=== PATIENT | female | born 1970 | race Caucasian/White ===

== ENCOUNTER → 2017-02-15 | Day surgery (SDC) | payer OTHER ==
[~2017-02-15] MED LIST: ALBUTEROL17 GM INH; AZITHROMYCIN250 MG PO; CHEWABLE ASPIRI81 MG PO; CIPRODEX OTIC7.5 ML OT; DOXYCYCLINE150 MG PO; FLEXERIL10 MG PO; FLOMAX0.4 M1 PO; HYCODAN60 ML 5MG/ PO; HYDROCODON-ACE1 EAC7 PO; KEFLEX500 MG PO; LEVAQUIN PO; LISINOPRIL20 MG PO; LORTAB 5/500 TA1 TA1 PO; OMEPRAZOLE40 M1 PO; PRILOSEC40 MG PO; SKELAXIN PO; SYMBICORT INH; TRAMADOL HCL50 M1 PO; TYL325 PO; ULTRAM PO; VICODIN 5/500 T1 TAB PO; ZESTRIL10 MG PO; ZESTRIL2.5 MG PO
--- NOTE | ~2017-02-15 | OR ---
Unit #: [id number] #: [id number] Patient: REAGAN SCHWARZ [id number] [address] [address] [id number] O MR#: [id number] NAME: REAGAN SCHWARZ. ROOM: Date of Procedure: 02/15/2017 Admission Date: 02/15/2017 Surgeon: David Diaz M.D. : 1970 Attending Physician: David Diaz M.D. Primary Care Physician: Desirae Younger M.D. OPERATIVE REPORT SERVICES PROVIDED 1. Therapeutic lumbar epidural steroid injection. 2. Fluoroscopy of the lumbosacral spine. PREOPERATIVE DIAGNOSES 1. Degenerative disk disease at L2-L3, L4-L5, and L5-S1. 2. Xbi-mvmtigo-vuatxgejn diabetes mellitus, gastroesophageal reflux disease, depression, anxiety disorder, asthma, peripheral edema, probable obstructive sleep apnea. POSTOPERATIVE DIAGNOSES 1. Degenerative disk disease at L2-L3, L4-L5, and L5-S1. 2. Gwx-nqwjgyg-bsmlmgltq diabetes mellitus, gastroesophageal reflux disease, depression, anxiety disorder, asthma, peripheral edema, probable obstructive sleep apnea. PROCEDURE PERFORMED Lumbar epidural steroid injection using fluoroscopy. FOLLOW-UP/REVIEW OF SYSTEMS/PHYSICAL EXAM Ms. Schwarz has persistent lumbar radiculopathy. She has responded in the short-term to a lumbar epidural steroid injection with a few weeks of greater than 60% pain relief. She has had a recurrence of right greater than the left lower extremity radiculopathy in the L5-S1 distributions predominantly. She reports minimal relief with tramadol and would like something stronger. She may have obstructive sleep apnea and was advised to follow with her PCP in this regard. She has no medical contraindications to the procedure, that was performed as follows with her consent. INDICATIONS/COMMENTS AND CONSENTS/STATEMENT OF MEDICAL NECESSITY The patient's current medications, allergies and vital signs are documented in the nursing assessment. The risks and benefits of the intervention(s) were discussed with the patient in detail including but not limited to infection, bleeding, meningitis, steroid induced side-effects, nerve damage, paralysis, spinal headaches, neuritis, persistent or worsening pain. The patient wishes to proceed. A separate pain assessment is also in the chart. I have reviewed all of this and have reviewed this with the patient. A current History and Physical is also attached. DESCRIPTION OF PROCEDURE(S) Unit #: [id number] #: [id number] Patient: REAGAN SCHWARZ 1. Monitoring and positioning: After appropriate discussions it was decided to perform the procedure under local anesthesia without supplemental intravenous sedation. Vital signs were monitored in pre, intra and post-procedure phase. Monitoring included EKG, non-invasive BP, pulse oximetry, and temperature. These are documented and were stable. Appropriate supports and restraints were used. 2. Sedation: None. 3. Lumbar epidural injection/fluoroscopy: The patient was placed in the sitting position. Positional supports were used. Fluoroscopy of the lumbar spine was performed. Sterile prep and drape with carried out with ChloraPrep. Local anesthesia was with infiltrated with 2 mL of preservative-free 1% Lidocaine. Once anesthesia was established, a 20-gauge 4-1/2 inch Tuohy epidural needle was inserted at the L5-S1 level epidurally, using a right interlaminar approach, loss of resistance to saline technique, and with fluoroscopic guidance. Needle placement tested negative for subarachnoid and intravascular placement. An intra-operative epidurogram was now performed. Intra-operative epidurogram: 1 mL(s) of Isovue-M300 was injected through the epidural needle under continuous fluoroscopy. The dye was seen to spread to L5 in the cephalad direction, and to S1 in the caudal direction. The spread of the dye was uniform. 1 mL of preservative-free normal saline was used to irrigate the dye off the epidural space. There was no intravascular or intrathecal spread of contrast. A lumbar epidural steroid injection was now performed using a total of 3 mL of a solution containing 0.2% bupivacaine and 80 mg of Depo-Medrol. Fluoroscopic imaging confirmed spread of medication. The needle was then removed intact. The skin was washed off. Prep solution and dressings were applied at the injection site. The patient tolerated the procedure well. The patient was then observed in the recovery area for 30 minutes. RESULTS The patient had a consistent block with the dose of local anesthetic used. Pain relief was satisfactory. There were no complications or side effects. DISCHARGE CONDITION 1. The patient was discharged in satisfactory condition accompanied by a family member. 2. Post-procedure instructions were given. PLAN(S) The patient will return to the clinic in 1 months' time for re-assessment and office visit. I thank the patient's referring physician for the opportunity to participate in the care of this patient. Please do not hesitate to call for any questions regarding this patient's pain management. Dictated by.Dianna Cates/aman TD: 02/15/2017 23:11 JOB #: [id number] Unit #: [id number] #: [id number] Patient: REAGAN SCHWARZ OPERATIVE REPORT Page 1 of 1 X David Diaz MD PROCEDURE OPERATIVE NOTE
== END | disposition home or self-care (01) ==
LOC: CCSC 07:32
DX: M51.16 Intervertebral disc disorders with radiculopathy, lumbar region (principal); M51.17 Intervertebral disc disorders with radiculopathy, lumbosacral region; E11.9 Type 2 diabetes mellitus without complications; K21.9 Gastro-esophageal reflux disease without esophagitis; F41.8 Other specified anxiety disorders; R60.0 Localized edema; F17.200 Nicotine dependence, unspecified, uncomplicated
CPT/HCPCS: 82947; J1040; J2250; J3010

== ENCOUNTER 2017-06-23 19:24 | Emergency (ER) | payer OTHER ==
[~2017-06-23] VITALS: Ht 165.1 cm; Wt 136.1 kg
--- NOTE | ~2017-06-23 | CT2 ---
[facility] A Service of [facility] RADIOLOGY TEXT RESULTS PATIENT: REAGAN BARON LOCATION: [facility] : [birth year] UNIT #: [id number] AGE: [address]: Whitley Ch MD SEX: F ORDER DR: [id number] [facility] [address] [place], [place] [address] [id number] E MR#: [id number] Acc #: [id number] NAME: REAGAN BARON : 1970 SEX: F STUDY DATE/TIME: 06/24/2017 00:52 UNIT: [facility] ROOM: STUDY DESCRIPTION: CT Abd and Pelv W Cont Attending Physician: Whitley Ch M.D. Ordering Physician: Whitley Ch M.D. Primary Care Physician: Cesar Rice [facility] IMAGING REPORT This report is preliminary unless electronic signature is present EXAM CT abdomen and pelvis 06/24 at 00:52 INDICATION Rectal bleeding for 1 month. Lower abdominal pain for 1 month. TECHNIQUE Axial images were obtained through the abdomen and pelvis following oral and IV contrast administration. Multiplanar reformats were obtained. Comparison made with 11/14/2016. This CT examination was performed with one or more of the following radiation dose reduction techniques: automatic exposure control, adjustment of mA and/or kV according to patient size, and iterative reconstruction. FINDINGS ABDOMEN: Lung bases are clear. There is fatty infiltration of the liver. Solid organs are otherwise normal. Gallbladder unremarkable. GI tract is normal. No free fluid or adenopathy is seen. PELVIS: There has been interval repair of an umbilical hernia. The appendix is normal. The remainder of the GI tract is normal as well. Solid pelvic organs unremarkable. No free fluid. There is some sclerosis of the right side of the symphysis pubis which is unchanged. 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 There is levoscoliosis in the lumbar spine. IMPRESSION 1. No acute findings in the abdomen or pelvis. 2. Fatty liver. 3. Normal GI tract, including the appendix. 4. Interval umbilical hernia repair. Dictated by... [facility] A Service of [facility] RADIOLOGY TEXT RESULTS PATIENT: REAGAN BARON LOCATION: [facility] : [birth year] UNIT #: [id number] AGE: [address]: Whitley Ch MD SEX: F ORDER DR: Rocky Rodriges Jr., M.D. THIS IS AN ELECTRONICALLY VERIFIED REPORT Rocky Rodriges Jr., M.D. at 06/27/2017 5:50 AM CLEOPATRA/dory TD: 06/24/2017 10:41 JOB #: [id number] MEDICAL IMAGING REPORT Page 1 of 1 COPY
[~2017-06-23 19:24] MED LIST changes: -FLOMAX0.4 M1 PO; -HYDROCODON-ACE1 EAC7 PO
[2017-06-23 20:09] LABS: BASOPHIL% 0.3 % (0-2.5); EOSINOPHIL# 0.3 X10e3 (0-0.7); EOSINOPHIL% 2.9 % (0.0-7.0); HEMATOCRIT 44.6 % (35.0-45.0); HEMOGLOBIN 14.6 gm/dL (12.0-16.0); LYMPHOCYTE# 3.7 X10e3 (1.0-3.5); LYMPHOCYTE% 32.1 % (17.0-45.0); MEAN CELL VOLUME 94.6 FL (83-96); MEAN CORPUSCULAR HEMOGLOBIN 31.1 PG (28-34); MEAN CORPUSCULAR HGB CONC 32.8 g/dL (30-36); MEAN PLATELET VOLUME 9.3 FL (6.5-11.5); MONOCYTE% 8.4 % (3.0-12.0); NEUTROPHIL# 6.5 X10e3 (1.5-7.1); NEUTROPHIL% 56.3 % (40-75); PLATELET COUNT 243 X10e3 (140-420); RED BLOOD COUNT 4.71 X10e (3.90-5.30); RED CELL DISTRIBUTION WIDTH 14.6 % (11.0-15.5); WHITE BLOOD COUNT 11.6 X10e3 (4.0-10.5)
[2017-06-23 20:14] LABS: DIFF IND NO
[2017-06-23 20:33] LABS: ALBUMIN SERUM 3.8 g/dL (3.5-5.0); ALKALINE PHOSPHATASE 68 U/L (32-92); ALT (SGPT) 12 U/L (10-40); AMYLASE 11 U/L (0-46); AST (SGOT) 18 U/L (10-42); BILIRUBIN, DIRECT 0.1 mg/dL (0.0-0.2); BILIRUBIN,INDIRECT 0.3 mg/dL (0.0-0.9); BILIRUBIN,TOTAL 0.4 mg/dL (0.2-2.0); BLOOD UREA NITROGEN <5 mg/dL (9-23); BUN/CREATININE RATIO 7.14; CALCIUM SERUM 8.8 mg/dL (8.4-10.2); CARBON DIOXIDE 27 mmol/L (22-31); CHLORIDE 100 mmol/L (100-111); CREATININE SERUM 0.7 mg/dL (0.6-1.4); GLOM FILT RATE Estimated 103.2 mL/min (>60); GLUCOSE FASTING 97 mg/dL (70-110); LIPASE 18 U/L (22-51); POTASSIUM 3.3 mmol/L (3.5-5.1); SODIUM 136 mmol/L (135-145)
[2017-06-23 23:17] LABS: URINE SOURCE CLEAN CATCH
[2017-06-23 23:24] LABS: URINE APPEARANCE CLEAR; URINE BILIRUBIN NEG (NEG); URINE BLOOD 2+ (NEG); URINE COLOR YELLOW; URINE GLUCOSE NEG (NEG); URINE KETONE NEG (NEG); URINE LEUKOCYTE ESTERASE NEG (NEG); URINE NITRATE NEG (NEG); URINE PROTEIN NEG (NEG); URINE SPECIFIC GRAVITY 1.021 (1.003-1.035); URINE UROBILINOGEN 0.2 MG/DL (NEG)
[2017-06-23 23:25] LABS: CULTURE INDICATED? YES; URINE BACTERIA AUWI 2+ (NEGATIVE); URINE SQUAMOUS EPITHELIAL CELL OCC /[HPF]; UWBCS1 AUWI 0-2 (0-5)
[2017-07-04] MEDS ORDERED: OMEPRAZOLE40 M1 PO (16:14)
[2017-07-04] MEDS ORDERED: HYDROCODON-ACE1 EAC7 PO (16:15)
[2017-07-04] MEDS ORDERED: FLOMAX0.4 M1 PO (16:15)
== END 2017-06-24 02:39 | disposition home or self-care (01) ==
LOC: CED 19:24
DX: R10.9 Unspecified abdominal pain (principal); Z88.0 Allergy status to penicillin; Z88.6 Allergy status to analgesic agent
CPT/HCPCS: 36415; 74177; 80048; 80076; 81003; 82150; 83690; 85025; 87086; 96374; 99284; J2270; Q9967

== ENCOUNTER → 2017-07-06 | Outpatient (CLI) | payer OTHER ==
[~2017-07-06] MED LIST changes: +FLOMAX0.4 M1 PO; +HYDROCODON-ACE1 EAC7 PO
--- NOTE | ~2017-07-06 | US6 ---
[facility] A Service of [facility] RADIOLOGY TEXT RESULTS PATIENT: REAGAN BARON LOCATION: [facility] : [birth year] UNIT #: [id number] AGE: [address]: Dagoberto Bower MD SEX: F ORDER DR: [id number] [facility] [address] [place], [place] [address] [id number] O MR#: [id number] Acc #: [id number] NAME: REAGAN BARON. : 1970 SEX: F STUDY DATE/TIME: 07/06/2017 9:07 UNIT: [facility] ROOM: STUDY DESCRIPTION: US Abdominal Limited Attending Physician: Dagoberto Bower Jr., M.D. Referring Physician: Dagoberto Bower Jr., M.D. Ordering Physician: Dagoberto Bower Jr., M.D. Primary Care Physician: Cesar Rice MEDICAL IMAGING REPORT This report is preliminary unless electronic signature is present EXAM Right upper quadrant abdominal ultrasound INDICATIONS Right upper quadrant abdominal pain for the past 2 months. PROCEDURE Mckeon-scale and Doppler imaging right upper quadrant of the abdomen. COMPARISON CT from 06/24/2017 FINDINGS Study is technically difficult, secondary to body habitus. Pancreas is obscured and not well seen. Liver is difficult to evaluate on this study. Common duct measures approximately 4 mm. The gallbladder is not well seen. Liver enlarged measuring 20.1 cm. Right kidney measures approximately 13 cm. No hydronephrosis. IMPRESSION 1. Technically difficult study secondary to body habitus. Many right upper quadrant structures are not well characterized. 2. Hepatomegaly. Dictated by... Dat Koch M.D. THIS IS AN ELECTRONICALLY VERIFIED REPORT Dat Koch M.D. at 07/08/2017 9:52 PM BLUE/miguel TD: 07/06/2017 11:31 [facility] A Service of [facility] RADIOLOGY TEXT RESULTS PATIENT: REAGAN BARON LOCATION: [facility] #: [id number] : [birth year] UNIT #: [id number] AGE: [address]: Dagoberto Bower MD SEX: F ORDER DR: YARON #: [id number] MEDICAL IMAGING REPORT Page 1 of 1 COPY
--- NOTE | ~2017-07-06 | NM22 ---
[facility] A Service of [facility] RADIOLOGY TEXT RESULTS PATIENT: REAGAN BARON LOCATION: [facility] : [birth year] UNIT #: [id number] AGE: [address]: Dagoberto Bower MD SEX: F ORDER DR: [id number] [facility] [address] [place], [place] [address] [id number] O MR#: [id number] Acc #: [id number] NAME: REAGAN BARON : 1970 SEX: F STUDY DATE/TIME: 07/06/2017 10:02 UNIT: [facility] ROOM: STUDY DESCRIPTION: PRUDENCIO Hepatobiliary W GB Pharm Attending Physician: Dagoberto Bower Jr., M.D. Referring Physician: Dagoberto Bower Jr., M.D. Ordering Physician: Dagoberto Bower Jr., M.D. Primary Care Physician: Cesar Rice MEDICAL IMAGING REPORT This report is preliminary unless electronic signature is present EXAM HIDA scan with Kinevac CCK 07/06/2017 HISTORY Right upper quadrant abdominal pain with nausea and vomiting. Alternating diarrhea and constipation, abdominal bloating early satiety. Symptoms since November 2016 worsening over the past month. FINDINGS The patient received intravenous injection of 5.64 mCi of technetium 99m tagged Choletec for hepatobiliary imaging. 1 hour following injection of the radiopharmaceutical the patient received an intravenous injection of 2.8 mcg of Kinevac. There is homogeneous distribution of radiotracer throughout the liver. Gallbladder activity was seen by 30 minutes postinjection of the radiopharmaceutical. Following Kinevac injection the gallbladder ejection fraction was 63.1% (normal is greater than 30%). IMPRESSION Normal HIDA scan with gallbladder ejection fraction of 63.1%. Dictated by... Camden Ordoñez M.D. THIS IS AN ELECTRONICALLY VERIFIED REPORT Camden Ordoñez M.D. at 07/07/2017 7:48 AM GAMALIEL/lulu TD: 07/06/2017 12:48 JOB #: [id number] MEDICAL IMAGING REPORT [facility] A Service of [facility] & [facility] RADIOLOGY TEXT RESULTS PATIENT: REAGAN BARON [facility] #: [id number] : [birth year] UNIT #: [id number] AGE: [address]: Dagoberto Bower MD SEX: F ORDER DR: Page 1 of 1 COPY
== END | disposition home or self-care (01) ==
LOC: CGUS 08:47
DX: R10.11 Right upper quadrant pain (principal); R11.10 Vomiting, unspecified; R16.0 Hepatomegaly, not elsewhere classified
CPT/HCPCS: 76705; 78227; A9537; J2805

== ENCOUNTER → 2017-07-12 | Day surgery (SDC) | payer OTHER ==
--- NOTE | ~2017-07-12 | OR ---
Unit #: [id number] #: [id number] Patient: REAGAN BARON [id number] [address] [place], [place] [address] [id number] O MR#: [id number] NAME: REAGAN BARON. ROOM: Date of Procedure: 07/12/2017 Admission Date: 07/12/2017 Surgeon: Dagoberto Bower Jr., M.D. : 1970 Attending Physician: Dagoberto Bower Jr., M.D. Primary Care Physician: Cesar Rice OPERATIVE REPORT INDICATIONS FOR PROCEDURE The patient is a 47-year-old white female, who has been having some recent rectal bleeding. She has also had abdominal pain with nausea and mid epigastric abdominal pain. She has had no previous colonoscopy. It was felt that she needed upper and lower endoscopy. She is brought in this time at her request after prep at home for these procedures. She understands the procedure including the risks, including that of perforation and bleeding, and consents. PREOPERATIVE DIAGNOSES Possible occult ulcer disease, possible esophagitis, rectal bleeding etiology? POSTOPERATIVE DIAGNOSES Possible occult ulcer disease, possible esophagitis, rectal bleeding etiology? On upper endoscopy, the patient was noted to have 2+ ulcerative distal esophagitis, small hiatal hernia, mild gastritis with several small antral benign-appearing polyps, and some chronic duodenitis without bleeding or ulcer disease and on colonoscopy to the cecum, the patient was noted to have a small lipoma of the ascending colon with some internal and external hemorrhoids. The external hemorrhoids did appear slightly irritated, but not actively bleeding. ANESTHESIA MAC anesthesia. PROCEDURE PERFORMED Flexible fiberoptic esophagogastroduodenoscopy with antral biopsy for Helicobacter pylori and biopsies of small polyps for pathology and colonoscopy to the cecum. DESCRIPTION OF PROCEDURE The patient was positioned in Wilson position with left side down. After being given MAC anesthesia, the Olympus XQ scope was passed through the proximal esophagus. The entire esophagus was examined. Proximal two-thirds appeared normal. In the area of the distal esophagus, there was 2+ ulcerative distal esophagitis without stenosis. The scope was advanced through the GE junction and the cardia, and down to the fundic and antral region of the stomach, retroflexed back up to the area of the cardia, there was a small hiatal hernia present. The stomach distended well without evidence of rigidity. There was no evidence of any gastric ulcer disease, but there were several small antral polyps, which appeared Unit #: [id number] #: [id number] Patient: REAGAN BARON to be benign and these were not pedunculated. Several of these were biopsied for pathology without bleeding. The scope was advanced through the pylorus and duodenal bulb and down to the second portion of the duodenum. The entire duodenal portion examination was within normal limits except for noting some chronic granular appearing mucosa in the bulb compatible with chronic mild duodenitis. The scope was then slowly removed. The patient repositioned for colonoscopy. Digital rectal examination was performed, which revealed no palpable mass or tenderness. No blood or stool in the rectal ampulla. There were external hemorrhoids present. The Olympus colonoscope was advanced through the anal canal up the rectum and retroflexed down to the area of the anorectal region. There was no evidence of any fissures. There were several internal hemorrhoids, which were not actively bleeding. The scope was then straightened and advanced up in the rectosigmoid, in the sigmoid and descending colon around the splenic flexure and the transverse colon around hepatic flexure and the ascending colon, down to the area of the cecum. The light from the tip of the scope could be seen transilluminating through right lower quadrant abdominal wall area. Multiple attempts advancing the scope up the distal ileum were unsuccessful. The scope was slowly removed. There were no tumors, polyps, cancer, or AVMs. No evidence of any colitis, diverticulosis, or diverticulitis. The caliber of the colon appeared normal throughout. The scope was removed. The patient tolerated the procedure well and discharged in satisfactory condition. Dictated by... Dagoberto Bower Jr., M.D. JMB/aman TD: 07/12/2017 17:20 JOB #: [id number] OPERATIVE REPORT Page 1 of 1 X Dagoberto Bower MD X PROCEDURE OPERATIVE NOTE
== END | disposition home or self-care (01) ==
LOC: COPS 11:19
DX: K31.7 Polyp of stomach and duodenum (principal); K62.5 Hemorrhage of anus and rectum; K22.10 Ulcer of esophagus without bleeding; K44.9 Diaphragmatic hernia without obstruction or gangrene; K29.70 Gastritis, unspecified, without bleeding; K29.80 Duodenitis without bleeding; K64.8 Other hemorrhoids; K64.4 Residual hemorrhoidal skin tags; D17.79 Benign lipomatous neoplasm of other sites
CPT/HCPCS: 82947; 84703; 87077; J2250